=== PATIENT | female | born 1975 | race Caucasian/White ===

== ENCOUNTER 2016-12-22 17:35 | Emergency (ER) ==
[2016-12-22 17:47] VITALS: BP 147/100
[2016-12-22 18:03] LABS: MANUAL DIFF NEEDED? NO
[2016-12-22 18:09] LABS: BASO% 0.8 % (0.0-0.8); EOS# 0.43 X1000 (0.0-0.7); EOS% 4.9 % (0.0-10.0); HEMATOCRIT 41.2 % (37.0-47.0); HEMOGLOBIN 13.7 g/dL (12.0-16.0); IMM GRAN# 0.03 X1000 (0.0-0.04); IMM GRAN% 0.3 % (0.0-0.5); LYMPH# 4.42 X1000 (1.2-3.4); LYMPH% 50.6 % (20.5-51.1); MCH 29.3 PG (27-31); MCHC 33.3 g/dL (33-37); MCV 88.2 FL (81-99); MONO# 0.66 X1000 (0.11-0.59); MONO% 7.6 % (1.7-9.3); MPV 10.6 FL (7.4-10.4); NEUT% 35.8 % (42.2-75.2); PLT 306 X1000 (130-400); RBC 4.67 XMIL (4.2-5.4)
[2016-12-22 18:23] LABS: AGAP 14; ALBUMIN 4.3 g/dL (3.5-5.0); ALKALINE PHOSPHATASE 80 U/L (32-104); AMYLASE 96 U/L (20-200); BUN 19 mg/dL (8-22); CALCIUM 9.7 mg/dL (8.8-10.2); CHLORIDE 101 mmol/L (98-107); COSMO 280; GOT 23 U/L (10-30); GPT 27 U/L (10-36); LIPASE 40 U/L (13-60); POTASSIUM 4.5 mmol/L (3.5-5.1); SODIUM 139 mmol/L (136-145); TCO2 24 mmol/L (25-35); TOTAL BILIRUBIN 0.13 mg/dL (0.20-1.00); TOTAL PROTEIN 7.4 g/dL (6.3-8.3)
[2016-12-22 18:33] LABS: URINE CULTURE NEEDED? NO; URINE MICRO REVIEW NEEDED? NO; URINE SOURCE CLEAN CATCH
[2016-12-22 18:36] LABS: BILIRUBIN URINE NEGATIVE (NEGATIVE); BLOOD URINE NEGATIVE (NEGATIVE); COLOR YELLOW; GLUCOSE URINE NEGATIVE (NEGATIVE); LEUKOCYTES URINE NEGATIVE (NEGATIVE); NITRITE URINE NEGATIVE (NEGATIVE); PROTEIN URINE TRACE mg/dL (NEGATIVE); SP GRAVITY URINE 1.026; TURBIDITY URINE CLEAR (CLEAR); UROBILINOGEN URINE NORMAL (NORMAL)
[2016-12-22 18:38] LABS: UR EPITHELIAL CELLS <10 /HPF (<10); URINE BACTERIA NEGATIVE /HPF; URINE RBC <10 /HPF (<10); URINE WBC <10 /HPF (<10)
--- NOTE | 2016-12-22 19:14 | PROVIDER DOCUMENTATION ---
HPI-Abdominal Pain/GI Problem - General Chief Complaint: Abdominal Pain Stated Complaint: ABD PAIN Time Seen by Provider: 12/22/16 18:58 Source: patient Allergies/Adverse Reactions: Patient Allergies Allergy/AdvReac Type Severity Reaction Status Date / Time erythromycin base Allergy RASH Verified 12/22/16 18:38 ketorolac tromethamine * Allergy DIARRHEA Verified 12/22/16 18:38 [From Toradol] Sulfa (Sulfonamide Allergy VOMITING Verified 12/22/16 18:38 Antibiotics) sumatriptan [From Imitrex] Allergy RASH Verified 12/22/16 18:38 sumatriptan succinate * Allergy RASH Verified 12/22/16 18:38 [From Imitrex] Home Medications: Home Medication List Medication Instructions Recorded Confirmed Last Taken Type Dicyclomine [Bentyl] 10 mg PO AC + HS #20 capsule 12/22/16 Unknown Rx Pantoprazole Sodium [Protonix] 40 mg PO DAILY #30 tablet. 12/22/16 Unknown Rx - History of Present Illness-ABD Nature of Presenting Problems: C/O RIGHT UPPER QUADRANT PAIN WORSENING SINCE NOON TODAY BUT HAS HAD PAIN FOR 5 DAYS. Vital Signs Temp Pulse Resp BP Pulse Ox 12/22/16 17:46 97.6 F 58 L 20 147/100 100 erythromycin base Allergy (Verified 12/22/16 18:38) RASH ketorolac tromethamine * [From Toradol] Allergy (Verified 12/22/16 18:38) DIARRHEA Sulfa (Sulfonamide Antibiotics) Allergy (Verified 12/22/16 18:38) VOMITING sumatriptan [From Imitrex] Allergy (Verified 12/22/16 18:38) RASH sumatriptan succinate * [From Imitrex] Allergy (Verified 12/22/16 18:38) RASH No Home Medications 12/22/16 I&O 12/21/16 12/22/16 12/23/16 06:59 06:59 06:59 Output Total 30 Balance -30 Laboratory 12/22/16 12/22/16 12/22/16 18:20 17:56 17:56 WBC 8.74 RBC 4.67 Hgb 13.7 Hct 41.2 MCV 88.2 MCH 29.3 MCHC 33.3 RDW Std Deviation 13.7 Plt Count 306 MPV 10.6 H Immature Gran % (Auto) 0.3 Neut % (Auto) 35.8 L Lymph % (Auto) 50.6 Miller % (Auto) 7.6 Eos % (Auto) 4.9 Baso % (Auto) 0.8 Immature Gran # (Auto) 0.03 Neut # (Auto) 3.13 Lymph # (Auto) 4.42 H Miller # (Auto) 0.66 H Eos # (Auto) 0.43 Baso # (Auto) 0.07 Sodium 139 Potassium 4.5 Chloride 101 Carbon Dioxide 24 L Anion Gap 14 BUN 19 Creatinine 0.9 Estimated GFR/1.73 m2 > 60 BUN/Creatinine Ratio 21 Glucose 96 Calculated Osmolality 280 Calcium 9.7 Total Bilirubin 0.13 L AST 23 ALT 27 Alkaline Phosphatase 80 Total Protein 7.4 Albumin 4.3 Globulin 3.1 Albumin/Globulin Ratio 1.4 Amylase 96 Lipase 40 Urine Source CLEAN CATCH Urine Color YELLOW Urine Turbidity CLEAR Urine pH 7.0 Ur Specific [place] 1.026 Urine Protein TRACE A Ur Glucose (Stick) NEGATIVE Ur Ketones (Stick) NEGATIVE Urine Blood NEGATIVE Urine Nitrite NEGATIVE Urine Bilirubin NEGATIVE Urobilinogen Dipstick NORMAL Urine Leukocytes NEGATIVE Urine WBC (Auto) <10 Urine RBC (Auto) <10 U Epithel Cells (Auto) <10 Urine Bacteria (Auto) NEGATIVE Abdominal Pain Onset Location: reports: RUQ Pain Radiation: reports: no radiation Quality of Pain: reports: aching Severity in ED: reports: mild Onset/Duration: reports: 5 days ago Timing: reports: still present Activities at Onset: reports: none Exposure to sick contacts?: No Modifying Factors: improves with: nothing Associated Symptoms: reports: nausea Last BM: this morning Bruising or Bleeding Gums?: No Similar Symptoms Previously?: No Recently seen or treated by another doctor?: No Review of Systems - Adult - REVIEW OF SYSTEMS - ADULT Constitutional: reports: no symptoms reported Eyes: reports: no symptoms reported Ears, Nose, Mouth & Throat: reports: no symptoms reported Cardiovascular: reports: no symptoms reported Respiratory: reports: no symptoms reported Gastrointestinal: reports: see HPI Genitourinary: reports: no symptoms reported Musculoskeletal: reports: no symptoms reported Integumentary: reports: no symptoms reported Neurological: reports: no symptoms reported Psychiatric: reports: no symptoms reported Endocrine: reports: no symptoms reported Hematologic/Lymphatic: reports: no symptoms reported Allergic/Immunologic: reports: no symptoms reported All Other Systems: Reviewed and Negative Past History - Adult - PAST MEDICAL HISTORY-ADULT Review of Records: reports: Nursing Assessment Review Major Childhood Illnesses: reports: denies history Cardiovascular: reports: denies history Respiratory: reports: denies history Gastrointestinal: reports: denies history Obstetrical/Gynecological: reports: denies history Genitourinary: reports: denies history Musculoskeletal: reports: denies history Neurological: reports: denies history Psychiatric: reports: denies history Endocrine/Immune: reports: denies history Other Conditions: reports: denies history - PRIOR SURGERIES/PROCEDURES Surgical/Procedure History: reports: none - PRIOR HOSPITALIZATIONS Prior Hospitalizations: reports: none - FAMILY HISTORY Family History: reviewed, not pertinent - SOCIAL HISTORY Smoking: less than 1 pack/day Substance Use: none/never Alcohol Use Frequency: never Living Situation: family Physical Exam-General - CONSTITUTIONAL General Appearance: appears well - EYES Eyes: PERRL/EOMI, pink conjunctivae - HEAD, EARS, NOSE, MOUTH & THROAT HENMT: normocephalic/atraumatic, moist mucous membranes - NECK Neck: non-tender - RESPIRATORY Respiratory: chest non-tender, lungs clear - CARDIOVASCULAR Cardiovascular: normal peripheral pulses - CHEST (BREASTS) Chest/Breast: deferred - GASTROINTESTINAL (ABDOMEN) Abdominal Exam: normal bowel sounds - GENITOURINARY Female Genitalia/Pelvic Exam: deferred Rectal Exam: deferred - LYMPHATIC Lymphatic: no adenopathy - MUSCULOSKELETAL Back Exam: normal inspection Extremity: normal range of motion - SKIN Integumentary: normal color, normal turgor, warm/dry - NEUROLOGIC Neurologic: grossly normal, no motor/sensory deficits - PSYCHIATRIC Psych/Mental Status: normal mood/affect, normal thought content Progress - PLAN OF CARE/RESULTS Progress/Plan/Lab Results: Vital Signs Temp Pulse Resp BP Pulse Ox 12/22/16 17:46 97.6 F 58 L 20 147/100 100 erythromycin base Allergy (Verified 12/22/16 18:38) RASH ketorolac tromethamine * [From Toradol] Allergy (Verified 12/22/16 18:38) DIARRHEA Sulfa (Sulfonamide Antibiotics) Allergy (Verified 12/22/16 18:38) VOMITING sumatriptan [From Imitrex] Allergy (Verified 12/22/16 18:38) RASH sumatriptan succinate * [From Imitrex] Allergy (Verified 12/22/16 18:38) RASH No Home Medications 12/22/16 I&O 12/21/16 12/22/16 12/23/16 06:59 06:59 06:59 Output Total 30 Balance -30 Laboratory 12/22/16 12/22/16 12/22/16 18:20 17:56 17:56 WBC 8.74 RBC 4.67 Hgb 13.7 Hct 41.2 MCV 88.2 MCH 29.3 MCHC 33.3 RDW Std Deviation 13.7 Plt Count 306 MPV 10.6 H Immature Gran % (Auto) 0.3 Neut % (Auto) 35.8 L Lymph % (Auto) 50.6 Miller % (Auto) 7.6 Eos % (Auto) 4.9 Baso % (Auto) 0.8 Immature Gran # (Auto) 0.03 Neut # (Auto) 3.13 Lymph # (Auto) 4.42 H Miller # (Auto) 0.66 H Eos # (Auto) 0.43 Baso # (Auto) 0.07 Sodium 139 Potassium 4.5 Chloride 101 Carbon Dioxide 24 L Anion Gap 14 BUN 19 Creatinine 0.9 Estimated GFR/1.73 m2 > 60 BUN/Creatinine Ratio 21 Glucose 96 Calculated Osmolality 280 Calcium 9.7 Total Bilirubin 0.13 L AST 23 ALT 27 Alkaline Phosphatase 80 Total Protein 7.4 Albumin 4.3 Globulin 3.1 Albumin/Globulin Ratio 1.4 Amylase 96 Lipase 40 Urine Source CLEAN CATCH Urine Color YELLOW Urine Turbidity CLEAR Urine pH 7.0 Ur Specific [place] 1.026 Urine Protein TRACE A Ur Glucose (Stick) NEGATIVE Ur Ketones (Stick) NEGATIVE Urine Blood NEGATIVE Urine Nitrite NEGATIVE Urine Bilirubin NEGATIVE Urobilinogen Dipstick NORMAL Urine Leukocytes NEGATIVE Urine WBC (Auto) <10 Urine RBC (Auto) <10 U Epithel Cells (Auto) <10 Urine Bacteria (Auto) NEGATIVE Vital Signs Temp Pulse Resp BP Pulse Ox 12/22/16 17:46 97.6 F 58 L 20 147/100 100 erythromycin base Allergy (Verified 12/22/16 18:38) RASH ketorolac tromethamine * [From Toradol] Allergy (Verified 12/22/16 18:38) DIARRHEA Sulfa (Sulfonamide Antibiotics) Allergy (Verified 12/22/16 18:38) VOMITING sumatriptan [From Imitrex] Allergy (Verified 12/22/16 18:38) RASH sumatriptan succinate * [From Imitrex] Allergy (Verified 12/22/16 18:38) RASH No Home Medications 12/22/16 I&O 12/21/16 12/22/16 12/23/16 06:59 06:59 06:59 Output Total 30 Balance -30 Laboratory 12/22/16 12/22/16 12/22/16 18:20 17:56 17:56 WBC 8.74 RBC 4.67 Hgb 13.7 Hct 41.2 MCV 88.2 MCH 29.3 MCHC 33.3 RDW Std Deviation 13.7 Plt Count 306 MPV 10.6 H Immature Gran % (Auto) 0.3 Neut % (Auto) 35.8 L Lymph % (Auto) 50.6 Miller % (Auto) 7.6 Eos % (Auto) 4.9 Baso % (Auto) 0.8 Immature Gran # (Auto) 0.03 Neut # (Auto) 3.13 Lymph # (Auto) 4.42 H Miller # (Auto) 0.66 H Eos # (Auto) 0.43 Baso # (Auto) 0.07 Sodium 139 Potassium 4.5 Chloride 101 Carbon Dioxide 24 L Anion Gap 14 BUN 19 Creatinine 0.9 Estimated GFR/1.73 m2 > 60 BUN/Creatinine Ratio 21 Glucose 96 Calculated Osmolality 280 Calcium 9.7 Total Bilirubin 0.13 L AST 23 ALT 27 Alkaline Phosphatase 80 Total Protein 7.4 Albumin 4.3 Globulin 3.1 Albumin/Globulin Ratio 1.4 Amylase 96 Lipase 40 Urine Source CLEAN CATCH Urine Color YELLOW Urine Turbidity CLEAR Urine pH 7.0 Ur Specific [place] 1.026 Urine Protein TRACE A Ur Glucose (Stick) NEGATIVE Ur Ketones (Stick) NEGATIVE Urine Blood NEGATIVE Urine Nitrite NEGATIVE Urine Bilirubin NEGATIVE Urobilinogen Dipstick NORMAL Urine Leukocytes NEGATIVE Urine WBC (Auto) <10 Urine RBC (Auto) <10 U Epithel Cells (Auto) <10 Urine Bacteria (Auto) NEGATIVE US GB NO ACUTE PROCESS, CBD WNL, NO GALL STONES Departure - Departure Time of Disposition Order: 20:45 DIAGNOSIS: Abdominal pain Qualifiers: Abdominal location: right upper quadrant Qualified Code(s): R10.11 - Right upper quadrant pain Disposition: HOME 01 Certified Medical Emergency: Emergent Condition: Stable Additional Instructions: CLEAR LIQUID DIET FOR 12-24 HOURS. INCREASE FLUIDS AND REST. TAKE PROTONIX AND BENTYL DISCUSSED ED Follow Up Instructions: You have been treated by a care provider in the Emergency Department. These instructions are being provided to you so you can have an understanding of how to care for yourself upon discharge. Upon discharge from the Emergency Department, you are responsible for making arrangements for follow-up care by a physician of your choice. Take all prescribed medications as directed. Return to the Emergency Department immediately for any new or worsening symptoms. You may call the Physician Referral phone number at [phone] to obtain a list of Physicians who are taking new patients. Prescriptions: Dicyclomine [Bentyl] 10 mg PO AC + HS #20 capsule Pantoprazole Sodium [Protonix] 40 mg PO DAILY #30 tablet.
[2016-12-22] MEDS ORDERED: PROTONIX PO ONE (20:49)
--- NOTE | 2016-12-22 20:57 | Diag Imaging Result Document ---
PROCEDURE NAME: US GB < RUQ (LIMITED) - 12/22/2016 [id number] ULTRASOUND: COMPARISON: None. FINDINGS: The liver, gallbladder, pancreas and right kidney are normal. The common bile duct measures 3 mm. Aorta, IVC, and main portal vein are patent. IMPRESSION: Negative examination.
== END 2016-12-22 21:03 | disposition home or self-care (01) ==
LOC: ED 17:35
DX: R10.11 Right upper quadrant pain (principal); R11.0 Nausea; F17.210 Nicotine dependence, cigarettes, uncomplicated
CPT/HCPCS: 76705; 80053; 81001; 82150; 83690; 85025